=== PATIENT | male | born 1975 | race African-American/Black ===

== ENCOUNTER 2022-07-01 01:07 | Emergency (ER) | payer OTHER ==
[~2022-07-01] VITALS: Ht 200.7 cm; Wt 82.0 kg
[2022-07-01 01:45] LABS: Urine Bacteria None Seen /hpf (None Seen)
[2022-07-01 01:57] LABS: Urine Specific Gravity 1.002 (1.001-1.035)
[2022-07-01 01:58] LABS: Urine Blood 1+ /uL (Negative)
[2022-07-01 02:04] LABS: Urine WBC 0-2 /hpf (0 - 3)
[2022-07-01 03:01] LABS: Albumin 3.8 g/dL (3.4-5.0); BUN/Creatinine Ratio 6.4 (10.0-20.0); Calcium 8.9 mg/dL (8.5-10.1); Potassium 3.8 mmol/L (3.5-5.1)
[2022-07-01 03:03] LABS: Bilirubin, Total 0.3 mg/dL (0.2-1.0); Total Protein 7.4 g/dL (6.4-8.2)
[2022-07-01 03:25] LABS: Basophils # (auto) 0.1 10 ^3/uL (0-0.2); Basophils % (auto) 1.3 % (0.0-2.0); Eosinophils # (auto) 0.1 10 ^3/uL (0-0.8); Eosinophils % (auto) 1.9 % (0.0-7.0); Hematocrit 44.5 % (41.0-53.0); Hemoglobin 15.2 g/dL (13.5-17.5); Lymphocytes # (auto) 2.7 10 ^3/uL (0.4-5.4); Lymphocytes % (auto) 35.5 % (10.0-50.0); Mean Corpuscular Hgb Conc. 34.2 g/dL (32.0-36.0); Mean Corpuscular Volume 93.7 fL (80.0-100.0); Monocytes # (auto) 0.4 10 ^3/uL (0-1.3); Monocytes % (auto) 5.4 % (0.0-12.0); Neutrophils # (auto) 4.2 10 ^3/uL (1.6-8.6); Neutrophils % (auto) 55.9 % (37.0-80.0); Nucleated Red Blood Cells % 0.1 %; Red Blood Cells 4.75 10^6/uL (4.5-5.90); White Blood Cell 7.6 10^3/uL (4.4-10.8)
[2022-07-01] MEDS ORDERED: LEVO-28 PO (05:12)
[2022-07-01] MEDS ORDERED: IBUP800T26 PO (05:12)
[2022-07-01] MEDS ORDERED: KETOROLAC TROMETH 60MG/2ML VIAL IM ONE (05:15)
[2022-07-01 05:17] VITALS: BP 130/80
== END 2022-07-01 05:31 | disposition home or self-care (01) ==
LOC: ER 01:07
DX: N45.1 Epididymitis (principal); F12.10 Cannabis abuse, uncomplicated
CPT/HCPCS: 36415; 72131; 74176; 76870; 80053; 81001; 83605; 85025; 96372; 99285; J1885